=== PATIENT | male | born 1935 | race Caucasian/White ===

== ENCOUNTER 2019-05-24 12:25 | Outpatient (CLI) | payer MEDICARE, SELFPAY ==
--- NOTE | ~2019-05-24 | US_ITS ---
EXAMINATION: US soft tissue head and neck DATE: 05/24/2019 13:15 INDICATION: Left neck abscess. TECHNIQUE: Multiple grayscale and Doppler ultrasound images of the left neck were obtained. COMPARISON: None FINDINGS: In the left submandibular region, there is a 2.0 x 1.5 cm mixed solid and cystic mass. IMPRESSION: 1. 2.0 x 1.5 cm mixed solid and cystic mass in the left submandibular region. The differential diagno sis includes abscess, suppurative lymph node, and necrotic javed metastatic disease. Consider neck CT with contrast. Reviewed, dictated and finalized at location A. IMPRESSION: 1. 2.0 x 1.5 cm mixed solid and cystic mass in the left submandibular region. T he differential diagnosis includes abscess, suppurative lymph node, and necroti c javed metastatic disease. Consider neck CT with contrast.
== END 2019-05-24 12:26 | disposition home or self-care (01) ==
PROVIDERS: PCP Internal Medicine; Visit Provider Internal Medicine
DX: R59.1 Generalized enlarged lymph nodes (principal); R22.1 Localized swelling, mass and lump, neck
CPT/HCPCS: 76536

== ENCOUNTER 2019-05-26 13:53 | Outpatient (CLI) | payer MEDICARE, SELFPAY ==
--- NOTE | ~2019-05-26 | CT_ITS ---
EXAMINATION: CT soft tissue neck w con EXAM DATE: 05/26/2019 14:58 INDICATION: Generalized enlarged lymph nodes, with pain. Marked. Abnormal ultrasound. TECHNIQUE: Spiral CT of the neck was performed following intravenous injection of 75 mL Omnipaque 350 . Axial, coronal and sagittal images were reviewed. The dose-length product (DLP) for this examinat ion was 541.87 mGy-cm. The exposure was tailored according to patient size (auto mA exposure control ), and iterative reconstruction (ASIR) was used as additional dose reduction technique. Correlation i s made to ultrasound dated 05/24/2019. FINDINGS: In the superficial lobe of the left parotid gland there is mixed density mass lesion likely the complex cystic mass identified on ultrasound. Given location, appearance, most likely primary pa rotid neoplasm, and suspicious for malignant histology. Differential diagnosis does include intraparo tid cystic lymph node from infection or metastatic disease. The thyroid gland is unremarkable. No in ternal jugular chain or supraclavicular lymph nodes. The superior mediastinum is unremarkable. The airway is unremarkable. Parapharyngeal and pre-glottic fat planes are preserved. The opacified v asculature is patent. The orbits are unremarkable. Small right maxillary sinus mucous retention c yst. Lung apices are clear. Moderate cervical spondylosis. There are no osteoblastic or osteolytic lesions identified. 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 Intraparotid lymph node less lik yu. Recommend ENT consult for histologic correlation, resection. Reviewed, dictated and finalized at location A. 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 Intraparot id lymph node less likely. Recommend ENT consult for histologic correlation, re section.
[2019-05-26 14:48] LABS: Estimated Glomerular Filt Rate > 60
== END 2019-05-26 13:54 | disposition home or self-care (01) ==
PROVIDERS: PCP Internal Medicine; Visit Provider Internal Medicine
DX: R59.0 Localized enlarged lymph nodes (principal); R22.1 Localized swelling, mass and lump, neck
CPT/HCPCS: 36415; 70491; Q9967

== ENCOUNTER 2019-06-05 13:07 | Outpatient (CLI) | payer MEDICARE, SELFPAY ==
--- NOTE | ~2019-06-05 | US_ITS ---
EXAMINATION: US FNA w image guidance DATE: 06/05/2019 14:26 INDICATION: Left parotid mass. TECHNIQUE: The procedure and its benefits, risks, and benefits were discussed with the patient. Risks specifical ly discussed included bleeding. The patient verbalized understanding of the risks and agreed to proce ed. The left face was prepped and draped in the usual sterile manner. 1% lidocaine was used for loca l anesthesia. 5 passes were made with a 25G needle into the lesion. Appropriate needle location was documented with continuous sonographic guidance. There were no immediate complications. The patient understood to call the ordering physician for results after a week and a half and verbalized that un derstanding. FINDINGS: Grayscale ultrasound images demonstrate needles advanced into a 1.7 x 1.6 cm mixed solid and cystic m ass in superficial left parotid gland for biopsy. IMPRESSION: 1. Ultrasound-guided fine needle aspiration of a left parotid mass. Reviewed, dictated and finalized at location A.
== END 2019-06-05 13:08 | disposition home or self-care (01) ==
LOC: ANHIMG 13:10
PROVIDERS: PCP Internal Medicine; Visit Provider Otolaryngology
DX: D37.030 Neoplasm of uncertain behavior of the parotid salivary glands (principal)
CPT/HCPCS: 10005; 88108; 88173; 88305

== ENCOUNTER 2019-07-18 14:35 | Outpatient (CLI) | payer MEDICARE, SELFPAY ==
--- NOTE | 2019-07-18 14:37 | ECG_ITS ---
Measurements Intervals [place] Rate: 56 P: 96 [place]: 287 QRS: -63 QRSD: 108 T: 65 QT: 430 QTc: 416 Interpretive Statements SINUS BRADYCARDIA WITH SINUS ARRHYTHMIA WITH FIRST DEGREE AV BLOCK INCOMPLETE RIGHT BUNDLE BRANCH BLOCK LEFT ANTERIOR FASCICULAR BLOCK BORDERLINE ST-T WAVE ABNORMALITY- LATERAL LEADS ABNORMAL ECG Electronically Signed On 07-18-2019 14:53:19 CDT by Ger Miller D.O.
[2019-07-18 15:13] LABS: Hemoglobin 15.5 g/dL (14.0-18.0)
== END 2019-07-18 14:36 | disposition home or self-care (01) ==
LOC: ANHSURGERY 14:37
PROVIDERS: Anesthesiology; PCP Internal Medicine; Visit Provider Otolaryngology
DX: R59.1 Generalized enlarged lymph nodes (principal); I45.10 Unspecified right bundle-branch block; I44.4 Left anterior fascicular block
CPT/HCPCS: 36415; 85014; 85018; 93005

== ENCOUNTER 2019-07-21 00:08 | Outpatient (CLI) | payer MEDICARE, SELFPAY ==
[2019-07-21 17:26] LABS: SARS-CoV-2 RNA PCR Negative
== END 2019-07-21 00:09 | disposition home or self-care (01) ==
LOC: ANHCOVIDDT 00:08
PROVIDERS: PCP Internal Medicine; Visit Provider Otolaryngology
DX: Z11.59 Encounter for screening for other viral diseases (principal)
CPT/HCPCS: 87635; C9803; U0003

== ENCOUNTER 2019-07-24 00:35 | Day surgery (SDC) | payer MEDICARE, SELFPAY ==
[2019-07-13 10:00] VITALS: BMI 25.1
[2019-07-24] VITALS (8 sets, daily range): BP systolic 128–167; BP diastolic 70–89; PULSE 58–75; RESP 8–20; TEMP 36.3–36.4; O2SAT 94–100
--- NOTE | 2019-07-24 07:19 | WPDHPUPDATE1 ---
History and Physical Update Update Date/Time: 07/24/19 07:19 LEFT superficial parotidectomy. History and Physical has been reviewed, including an updated exam of the patient. There are NO changes in the patient's condition. Risks, benefits, and alternatives have been discussed and questions answered. Patient agrees to proceed with procedure.
[2019-07-24] MEDS: LACTATED RINGERS 1,000 ML 30 ML IV CONT ×2 (07:40→09:46)
--- NOTE | 2019-07-24 08:00 | WPDANESEPPF ---
Anes - Initial Pre Proc Eval Procedure: Operation Date: 07/24/19 08:30 Proposed Procedures p Left Superficial Parotidectomy with Facial Nerve Monitor - Coleman Sweeney MD Date/Time: 07/24/19 08:00 Surgeon: Coleman Sweeney MD Pre Op Diagnosis: parotid neoplasm Patient Data Age: 83 Gender: M Height: 5 ft 11 in Weight: 83 kg Last Vital Signs Temp 97.5 F L 07/24/19 07:45 Pulse 58 L 07/24/19 07:45 Resp 16 07/24/19 07:45 BP 167/86 H 07/24/19 07:45 Pulse Ox 100 07/24/19 07:45 Allergies Allergy/AdvReac Type Severity Reaction Status Date / Time No Known Allergies Allergy Verified 07/24/19 07:12 Home Medications Medication Instructions Recorded Confirmed Type Lacto.acidophilus-Bif.animalis 1 cap PO DAILY 07/13/19 07/24/19 History [Daily Probiotic] biotin 5 mg PO DAILY 07/13/19 07/24/19 History coQ10 (ubiquinol) 100 mg PO BID 07/13/19 07/24/19 History glucosamine-chondroitin 1 cap PO DAILY 07/13/19 07/24/19 History multivitamin,wh-nhwo-czdrsdmh 1 tablet PO DAILY 07/13/19 07/24/19 History [Complete Multivitamin] omega 4-nos-gux-fish oil [Fish Oil] 1 cap PO DAILY 07/13/19 07/24/19 History Patient hx anesthesia problems: none Family hx anesthesia problems: none PMFSH Past Medical History Medical History (Updated 07/24/19 @ 08:00 by Max Johnson MD) Primary parotid gland malignancy Family History Family History (Updated 04/27/16 @ 10:27 by DOCTOR UNKNOWN) Sibling Family history of malignant melanoma Family history of malignant neoplasm of brain Father Hypertension Other Cerebrovascular accident Family history of coronary artery disease Family history of emphysema Family history of malignant neoplasm Social History Social History Smoking status: Never smoker Alcohol intake: current Anes - Eval Final PreProcedure Day of Procedure 07/24/19 08:00 Patient weight: normal Heart: regular rate and rhythm Lungs: clear to auscultation Airway: Mallampati scale class II Neurological: alert and oriented Last oral intake: >/= 8 hours ASA classification: II Emergent: no Anesthetic plan: proceed Anesthesia type and monitoring: general ETT and standard monitoring Informed Consent: The patient's anesthetic plan and its attendant risks and benefits were discussed with the patient/family/POA. Questions were solicited and answers provided to the satisfaction of the patient/family/POA.
--- NOTE | 2019-07-24 08:00 | PM.PROC ---
Procedure Note - Detailed Date of procedure: 07/24/19 Pre-op diagnosis: parotid neoplasm Post-op diagnosis: same Procedure performed: Left superficial parotidectomy with facial nerve monitoring Description of procedure: After informed consent was obtained the time out procedure was performed the patient was brought to the operating room placed on the operating table in the supine position. The patient was placed under general endotracheal anesthesia. A modified José Miguel incision was marked out in the patient's left preauricular crease. 1% lidocaine with one 100,000 epinephrine was injected into the marked incision. The patient was prepped and draped in the usual fashion. A #15 scalpel was used to make the skin incision. This was carried down to the level of the greater auricular nerve.this nerve was dissected superiorly up to the patient's earlobe. The preauricular incision was not made due to the inferior extent of the tumor. The underlying tumor was easily palpated. The greater auricular nerve was preserved.? The anterior border of the SCM was identified and peeled off of the tumor. The tumor was approximately 2.5cm at the tail of parotid. It was dissected free from the SCM and circumferentially freed from surrounding tissue using harmonic scalpel and careful dissection. The parotid mass was then removed from the remaining tail of parotid. No stimulation of the facial nerve was encountered. The main trunk of the facial nerve was identified in its normal anatomic position and preserved. The nerve intraoperative monitor was utilized throughout the case and the facial nerve was confirmed using the prass probe.? Once the specimen was passed off the field the wound bed was carefully irrigated using warm saline solution, there is no evidence of any significant bleeding. The upper and lower divisions of the facial nerve were then stimulated at 1 milliamp, and found to have greater than 1000 microvolts of stimulation. The wound was then closed in layers over a? Dariusz drain using 3-0 Vicryl 4-0 Monocryl, and dermabond. No drain was indicated. The patient was then awakened from general anesthesia, extubated and transferred to recovery in stable condition. Anesthesia: GETA Surgeon: Coleman Sweeney MD Estimated blood loss (mL): 10 Drains: No Packing: No Pathology: yes (left tail of parotid) Complications: No immediate complications Condition: stable Disposition: PACU Findings: Left tail of parotid mass. Facial nerve intact.
--- NOTE | 2019-07-24 08:05 | SUR.PREOP ---
Up to bathroom.
[2019-07-24] MEDS: ceFAZolin SODIUM 1 GM VIAL 2 GM IV PUSH (08:52)
[2019-07-24] MEDS: LIDO 1%/EPINEPHRINE 1:100,000 20 ML VIAL 10 ML INFILTRATE (08:54)
== END 2019-07-24 11:09 | disposition home or self-care (01) ==
PROVIDERS: PCP Internal Medicine; Visit Provider Otolaryngology
PROC: (CPT 42410; principal; 2019-07-24 08:30)
DX: D11.0 Benign neoplasm of parotid gland (principal); K11.23 Chronic sialoadenitis
CPT/HCPCS: 42410; 88305; 88307; A9270; J0131; J0330; J0690; J1100; J2405; J2704; J3010; J7120

== ENCOUNTER → 2020-09-16 11:36 | Outpatient (CLI) | payer MEDICARE, SELFPAY ==
--- NOTE | ~2020-09-16 | XR_ITS ---
XR knee RT 3V 09/16/2020 12:52 Indication: Knee pain Procedure: 3 views right knee Comparison: 08/22/2018 Findings: Mild osteoarthritis of the right knee. No fracture or traumatic malalignment. No joint effu matt. Osteopenia. 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 Reviewed, dictated and finalized at location A. 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
--- NOTE | ~2020-09-16 | XR_ITS ---
XR knee LT 3V 09/16/2020 12:52 Indication: Left knee pain Procedure: 3 views left knee Comparison: 3 views left knee Findings: Mild osteoarthritis of the left knee. No fracture or traumatic malalignment. No significant joint effusion. Impression: 1: Mild osteoarthritis of the left knee. Reviewed, dictated and finalized at location A. Impression: 1: Mild osteoarthritis of the left knee.
== END ==
PROVIDERS: PCP Internal Medicine; Visit Provider Internal Medicine
DX: M25.569 Pain in unspecified knee (principal); M17.0 Bilateral primary osteoarthritis of knee
CPT/HCPCS: 73562

== ENCOUNTER 2021-12-02 10:29 | Outpatient (CLI) | payer MEDICARE, SELFPAY ==
--- NOTE | ~2021-12-02 | XR_ITS ---
EXAMINATION: XR abdomen/kub 1V INDICATION: Diarrhea TECHNIQUE: Supine views of the abdomen were obtained on 2 radiographs. COMPARISON: None FINDINGS: A large volume of stool is present in the descending colon and rectum. No free intraperiton eal gas is identified. There are distended loops of bowel in the midabdomen. There is mild atelectasi s of the lung bases. IMPRESSION: 1. Large volume of stool in the descending colon and rectum with dilated bowel in the midabdomen, pos sibly due to constipation. Reviewed, dictated and finalized at location A. IMPRESSION: 1. Large volume of stool in the descending colon and rectum with dilated bowel in the midabdomen, possibly due to constipation.
== END 2021-12-02 10:30 | disposition home or self-care (01) ==
PROVIDERS: PCP Internal Medicine; Visit Provider Nurse Practitioner Family
DX: R19.7 Diarrhea, unspecified (principal)
CPT/HCPCS: 74018

== ENCOUNTER 2022-02-27 00:58 | Day surgery (SDC) | payer MEDICARE, SELFPAY ==
[2022-02-13 10:42] VITALS: BMI 24.5
[2022-02-27 08:59] VITALS: BP 146/91; PULSE 67; RESP 20; TEMP 36.3; O2SAT 99
[2022-02-27] MEDS: LACTATED RINGERS 1,000 ML 150 ML IV CONT (09:13)
--- NOTE | 2022-02-27 09:17 | PM.HPGS ---
History of Present Illness History of Present Illness Consent: Risks, benefits, and alternatives have been discussed and questions answered. Patient agrees to proceed with procedure. Chief complaint: diarrhea Narrative: Primo Olivia is a 86 year old male Presents for colonoscopy. Patient reports over last several months has had alteration in his bowel habits. Previously had a tendency to constipation began to have loose to watery stools but only on a once a day basis. Patient had been taking magnesium that could have contributed to diarrhea and loose stools. Imaging studies were performed which revealed excessive stool for this reason he was briefly given a trial of Linzess. Patient continues to feel bowel habits are not regular and for this reason colonoscopy is advised. Previous colonoscopy 2016 was felt to be unremarkable. Patient presents today for colonoscopy to assess change in bowel habits. Review of Systems Review of Systems: Review of systems noncontributory. [facility] Past Medical History Medical History Actinic keratosis of scalp Amaurosis fugax, both eyes Arthritis of both knees Change in bowel habits Chronic pain of both shoulders Chronic pain of right knee Chronic shoulder pain Colitis Cough Encounter for routine adult health examination without abnormal findings Hearing loss Hernia Herpes zoster without complication Instability of right knee joint Internal derangement of left knee Other chronic pain Pain in right shoulder Pain of right hip joint Primary osteoarthritis of both shoulders Primary osteoarthritis of right knee Primary parotid gland malignancy (~2018) Removal of Tumor Tunnel vision Unspecified hearing loss Surgical History Surgical History History of hernia surgery (~2005) History of vasectomy (~1974) Family History Family History Sibling Family history of malignant melanoma Family history of malignant neoplasm of brain Father Hypertension Other Cerebrovascular accident Family history of coronary artery disease Family history of emphysema Family history of malignant neoplasm Social History Social History Smoking status: Never smoker Alcohol intake: current Drinks per week: 9 Alcohol use details: social, wine Substance use: never Substance use type: does not use Lack of Transportation: No Lack of Food: Never True Current Housing: I Have Housing Concerned About Future Housing: No Difficulty Paying Gas/Electric Bills: No Difficulty Paying for Meds: No Currently Unemployed: No Education: Master's Degree or Higher Difficulty w/ Childcare or Family Care: No Spiritual care concerns: No Meds Home Medications and Allergies Home Medications Medication Instructions Recorded Confirmed Type Lactobacillus 1 cap PO DAILY 07/13/19 02/13/22 History acidophilus-Bifidobac.animalis 2.5 billion cell capsule (Daily Probiotic) coQ10 (ubiquinol) 100 mg capsule 100 mg PO BID 07/13/19 02/13/22 History multivitamin,lg-tknu-tmfizwwd 1 tablet PO DAILY 07/13/19 02/13/22 History (Complete Multivitamin tablet) omega 3-lxb-mis-fish oil 1,000 mg 1 cap PO DAILY 07/13/19 02/13/22 History (120 mg-180 mg) capsule (Fish Oil) cholecalciferol (vitamin D3) 50 50 mcg PO DAILY 03/31/21 02/13/22 History mcg (2,000 unit) capsule zinc 50 mg tablet 50 mg PO DAILY 03/31/21 02/13/22 History turmeric (bulk) 95 % powder 1 ea miscellaneous DAILY 01/08/22 02/13/22 History (Curcumin) sodium,potassium,mag sulfates 17.5 See Rx Instructions PO .COMPLEX 02/09/22 02/13/22 Rx gram-3.13 gram-1.6 gram oral soln #354 mL (Suprep Bowel Prep Kit) Total Restore 1 tab-cap PO DAILY 02/13/22 02/13/22 History astaxanthin 4 mg capsule 4 mg PO DAILY
--- NOTE | 2022-02-27 09:32 | WPDANESEPPF ---
Anes - Initial Pre Proc Eval Procedure: Operation Date: 02/27/22 11:00 Proposed Procedures p Colonoscopy - Mitchell Hussein MD Date/Time: 02/27/22 09:32 Surgeon: Mitchell Hussein MD Pre Op Diagnosis: diarrhea Patient Data Age: 86 Gender: M Height: 1.8 m Weight: 81.2 kg Last Vital Signs Temp 97.3 F L 02/27/22 08:59 Pulse 67 02/27/22 08:59 Resp 20 02/27/22 08:59 BP 146/91 H 02/27/22 08:59 Pulse Ox 99 02/27/22 08:59 O2 Del Method Room Air 02/27/22 08:59 Allergies Allergy/AdvReac Type Severity Reaction Status Date / Time No Known Allergies Allergy Verified 02/27/22 08:58 Home Medications Medication Instructions Recorded Confirmed Type Lactobacillus 1 cap PO DAILY 07/13/19 02/13/22 History acidophilus-Bifidobac.animalis 2.5 billion cell capsule (Daily Probiotic) coQ10 (ubiquinol) 100 mg capsule 100 mg PO BID 07/13/19 02/13/22 History multivitamin,fm-qyug-ntjecemr 1 tablet PO DAILY 07/13/19 02/13/22 History (Complete Multivitamin tablet) omega 2-jel-qyu-fish oil 1,000 mg 1 cap PO DAILY 07/13/19 02/13/22 History (120 mg-180 mg) capsule (Fish Oil) cholecalciferol (vitamin D3) 50 50 mcg PO DAILY 03/31/21 02/13/22 History mcg (2,000 unit) capsule zinc 50 mg tablet 50 mg PO DAILY 03/31/21 02/13/22 History turmeric (bulk) 95 % powder 1 ea miscellaneous DAILY 01/08/22 02/13/22 History (Curcumin) sodium,potassium,mag sulfates 17.5 See Rx Instructions PO .COMPLEX 02/09/22 02/13/22 Rx gram-3.13 gram-1.6 gram oral soln #354 mL (Suprep Bowel Prep Kit) Total Restore 1 tab-cap PO DAILY 02/13/22 02/13/22 History astaxanthin 4 mg capsule 4 mg PO DAILY 02/13/22 02/13/22 History Patient hx anesthesia problems: none Family hx anesthesia problems: none Results Review: All pre-operative results and documents have been reviewed as part of the pre-operative evaluation. [facility] Past Medical History Medical History Actinic keratosis of scalp Amaurosis fugax, both eyes Arthritis of both knees Change in bowel habits Chronic pain of both shoulders Chronic pain of right knee Chronic shoulder pain Colitis Cough Encounter for routine adult health examination without abnormal findings Hearing loss Hernia Herpes zoster without complication Instability of right knee joint Internal derangement of left knee Other chronic pain Pain in right shoulder Pain of right hip joint Primary osteoarthritis of both shoulders Primary osteoarthritis of right knee Primary parotid gland malignancy (~2018) Removal of Tumor Tunnel vision Unspecified hearing loss Surgical History Surgical History History of hernia surgery (~2005) History of vasectomy (~1974) Family History Family History Sibling Family history of malignant melanoma Family history of malignant neoplasm of brain Father Hypertension Other Cerebrovascular accident Family history of coronary artery disease Family history of emphysema Family history of malignant neoplasm Social History Social History Smoking status: Never smoker Alcohol intake: current Drinks per week: 9 Alcohol use details: social, wine Substance use: never Substance use type: does not use Lack of Transportation: No Lack of Food: Never True Current Housing: I Have Housing Concerned About Future Housing: No Difficulty Paying Gas/Electric Bills: No Difficulty Paying for Meds: No Currently Unemployed: No Education: Master's Degree or Higher Difficulty w/ Childcare or Family Care: No Spiritual care concerns: No Anes - Eval Final PreProcedure Day of Procedure 02/27/22 09:32 Patient weight: normal Heart: regular rate and rhythm Lungs: clear to auscultation Airway: Mallampati scale class II Neurolo
[2022-02-27 10:02] VITALS: BP 109/67; PULSE 54; RESP 20; O2SAT 98
[2022-02-27 10:12] VITALS: BP 126/79; PULSE 56; RESP 20; O2SAT 100
[2022-02-27 10:22] VITALS: BP 145/85; PULSE 84; RESP 20; O2SAT 99
== END 2022-02-27 10:36 | disposition home or self-care (01) ==
PROVIDERS: PCP Nurse Practitioner; Visit Provider Internal Medicine Gastroenterology
PROC: 0DJD8ZZ Inspection of Lower Intestinal Tract, Via Natural or Artificial Opening Endoscopic (ICD-10-PCS; CPT 45378; principal; 2022-02-27 11:00)
DX: R19.4 Change in bowel habit (principal); K64.8 Other hemorrhoids
CPT/HCPCS: 45378; J2704; J7120

== ENCOUNTER 2022-05-13 08:44 | Outpatient (CLI) | payer MEDICARE, SELFPAY ==
--- NOTE | 2022-05-13 08:53 | EST_ITS ---
Patient Info Name: Primo Olivia Age: 86 years : 1935 Gender: Male Ht: 71 in Wt: 175 lbs BSA: 2.00 m2 HR: 67 bpm BP: 156 / 98 mmHg Exam Date: 05/13/2022 10:44 AM Exam Location: [facility] Stress Patient Status: Outpatient Admit Date: 05/13/2022 Staff Ordering Physician: Camden Kennedy APRN Attending Provider: Camden Kennedy APRN Exam Type: CA stress test treadmill Study Info A treadmill exercise stress test was performed. Summary 1. 1. Inconclusive Ramone exercise stress test for ischemic ST changes by ECG criteria as patient only achieved 70% MPHR for age group. 2. 2. Poor functional capacity, achieving 4.7 METs of workload. 3. 3. Chronotropic incompetence is demonstrated. 4. 4. Baseline hypertension. 5. 5. No imaging with stress testing. 6. 6. Patient informed of the above results. Protocol: [facility] Stress ECG Details Stage: REST Duration (min): 1 min : 57 sec Speed (mph): 0.0 Grade (%): 0 HR (bpm): 68 SBP (mmHg): 156 DBP (mmHg): 98 METS: --- Stage: REST Duration (min): 12 min : 28 sec Speed (mph): 0.0 Grade (%): 0 HR (bpm): 70 SBP (mmHg): 156 DBP (mmHg): 98 METS: --- Stage: STAGE 1 Duration (min): 1 min : 0 sec Speed (mph): 1.7 Grade (%): 10 HR (bpm): 84 SBP (mmHg): 156 DBP (mmHg): 98 METS: --- Stage: STAGE 1 Duration (min): 2 min : 0 sec Speed (mph): 1.7 Grade (%): 10 HR (bpm): 85 SBP (mmHg): 156 DBP (mmHg): 98 METS: --- Stage: STAGE 1 Duration (min): 2 min : 59 sec Speed (mph): 1.7 Grade (%): 10 HR (bpm): 87 SBP (mmHg): 156 DBP (mmHg): 98 METS: --- Stage: RECOVERY Duration (min): 1 min : 0 sec Speed (mph): 0.0 Grade (%): 0 HR (bpm): 92 SBP (mmHg): 156 DBP (mmHg): 98 METS: --- Stage: RECOVERY Duration (min): 2 min : 0 sec Speed (mph): 0.0 Grade (%): 0 HR (bpm): 81 SBP (mmHg): 145 DBP (mmHg): 113 METS: --- Stage: RECOVERY Duration (min): 3 min : 0 sec Speed (mph): 0.0 Grade (%): 0 HR (bpm): 77 SBP (mmHg): 159 DBP (mmHg): 107 METS: --- Stage: RECOVERY Duration (min): 4 min : 0 sec Speed (mph): 0.0 Grade (%): 0 HR (bpm): 72 SBP (mmHg): 159 DBP (mmHg): 107 METS: --- Stage: RECOVERY Duration (min): 5 min : 0 sec Speed (mph): 0.0 Grade (%): 0 HR (bpm): 77 SBP (mmHg): 159 DBP (mmHg): 107 METS: --- Stage: RECOVERY Duration (min): 6 min : 0 sec Speed (mph): 0.0 Grade (%): 0 HR (bpm): 76 SBP (mmHg): 159 DBP (mmHg): 107 METS: --- Stage: RECOVERY Duration (min): 7 min : 0 sec Speed (mph): 0.0 Grade (%): 0 HR (bpm): 81 SBP (mmHg): 196 DBP (mmHg): 115 METS: --- Stage: RECOVERY Duration (min): 8 min : 0 sec Speed (mph): 0.0 Grade (%): 0 HR (bpm): 82 SBP (m
--- NOTE | 2022-05-13 08:53 | ECHO_ITS ---
Patient Info Name: Primo Olivia Age: 86 years : 1935 Gender: Male Ht: 71 in Wt: 175 lbs BSA: 2.00 m2 HR: 73 bpm BP: 142 / 91 mmHg Technical Quality: Good Exam Date: 05/13/2022 9:20 AM Exam Location: [facility] Patient Status: Outpatient Admit Date: 05/13/2022 Staff Ordering Physician: Camden Kennedy APRN Repair Technician: Fazal Mejía RDCS, RT Attending Provider: Camden Kennedy APRN Referring Physician: Brent BEGUM; Exam Type: CA echo doppler color flow Study Info Indications R53.82 - Chronic fatigue, unspecified Complete two-dimensional, color flow and Doppler transthoracic echocardiogram is performed. Strain analysis performed. Summary 1. Complete two-dimensional, color flow and Doppler transthoracic echocardiogram is performed. 2. Left ventricular chamber dimension is mildly enlarged. 3. There is mildly increased left ventricular wall thickness. 4. Left ventricular systolic function is mildly globally reduced, estimated at 45-50%. 5. The left ventricular diastolic function is grade I diastolic dysfunction. 6. E/e' 8 is minimally elevated. 7. Global longitudinal strain is abnormal at -13.3%. 8. Left atrial chamber dimension is mildly enlarged. 9. Right atrial chamber dimension is moderately enlarged. 10. There is mild aortic valve sclerosis. 11. There is mild to moderate mitral valve regurgitation. 12. There is mild to moderate tricuspid valve regurgitation. 13. Mild pulmonary hypertension, estimated pulmonary arterial systolic pressure is 44 mmHg. 14. There is mild pulmonic regurgitation. 15. Dilated inferior vena cava with >50% collapse upon inspiration consistent with elevated right atrial pressure, 10 mmHg. Left Ventricle E/e' 8 is minimally elevated. Global longitudinal strain is abnormal at -13.3%. Left ventricular systolic function is mildly globally reduced, estimated at 45-50%. Left ventricular chamber dimension is mildly enlarged. There is mildly increased left ventricular wall thickness. The left ventricular diastolic function is grade I diastolic dysfunction. Right Ventricle Right ventricular systolic function is normal based on normal TAPSE 1.8 cm. Right ventricular chamber dimension is not well visualized. Left Atria Left atrial chamber dimension is mildly enlarged. Right Atria Right atrial chamber dimension is moderately enlarged. Aortic Valve The aortic valve is trileaflet. There is mild aortic valve sclerosis. There is no aortic valve stenosis. There is no aortic valve regurgitation. Pulmonic Valve There is mild pulmonic regurgitation. Mitral Valve There is no mitral valve stenosis. There is mild to moderate mitral valve regurgitation. Tricuspid Valve There is mild to moderate tricuspid valve regurgitation. Mild pulmonary hypertension, estimated pulmonary arterial systolic pressure is 44 mmHg. Pericardium/Pleural There is no pericardial effusion. Inferior Vena Cava Dilated inferior vena cava with >50% collapse upon inspiration consistent with elevated right atrial pressure, 10 mmHg. Aorta The aortic root size at the sinus of Valsalva is normal. Left Ventricular Outflow Tract Name Value Normal LVOT 2D LVOT Diameter
== END 2022-05-13 08:45 | disposition home or self-care (01) ==
PROVIDERS: PCP Nurse Practitioner; Visit Provider Nurse Practitioner
DX: R06.02 Shortness of breath (principal); I08.3 Combined rheumatic disorders of mitral, aortic and tricuspid valves
CPT/HCPCS: 93017; 93306

== ENCOUNTER 2022-09-01 07:47 | Outpatient (CLI) | payer MEDICARE, SELFPAY ==
--- NOTE | 2022-09-01 | EST_ITS ---
Patient Info Name: Primo Olivia Age: 87 years : 1935 Gender: Male Ht: 72 in Wt: 175 lbs BSA: 2.01 m2 HR: 57 bpm BP: 152 / 98 mmHg Heart Rhythm: Sinus Rhythm Exam Date: 09/01/2022 8:45 AM Exam Location: [facility] Stress Patient Status: Outpatient Admit Date: 09/01/2022 Staff Ordering Physician: Camden Kennedy APRN Attending Provider: Camden Kennedy APRN Exercise Technologist: Lurdes Peace CT Nurse: setephania hansen Exam Type: CA stress angeli w NM Study Info Indications R06.02 - Shortness of breath A regadenoson stress test was performed. Summary 1. No abnormal ST/T wave changes diagnostic of ischemia with Lexiscan. 2. Occasional PACs. 3. Please correlate with nuclear medicine images, reported separately. Protocol: Lexiscan Stress ECG Details Stage: REST Duration (min): 7 min : 16 sec HR (bpm): 53 SBP (mmHg): 159 DBP (mmHg): 80 Stage: REST Duration (min): 37 min : 34 sec HR (bpm): 45 SBP (mmHg): 152 DBP (mmHg): 98 Stage: REST Duration (min): 46 min : 42 sec HR (bpm): 50 SBP (mmHg): 152 DBP (mmHg): 98 Stage: STAGE 1 Duration (min): 0 min : 59 sec HR (bpm): 56 SBP (mmHg): 157 DBP (mmHg): 98 Stage: RECOVERY Duration (min): 1 min : 0 sec HR (bpm): 67 SBP (mmHg): 157 DBP (mmHg): 98 Stage: RECOVERY Duration (min): 2 min : 0 sec HR (bpm): 64 SBP (mmHg): 157 DBP (mmHg): 98 Stage: RECOVERY Duration (min): 3 min : 0 sec HR (bpm): 63 SBP (mmHg): 143 DBP (mmHg): 92 Stage: RECOVERY Duration (min): 3 min : 11 sec HR (bpm): 63 SBP (mmHg): 143 DBP (mmHg): 92 Rest HR: 50 bpm Peak HR: 67 bpm Rest Sys BP: 152 mmHg Peak Sys BP: 157 mmHg Max Pred HR: 134 bpm % Max Pred HR: 50 % Target HR: 114 bpm Max RPP: 10,519 bpm*mmHg Total Time: 1 min : 0 sec Rest Madison BP: 98 mmHg Peak [place] BP: 98 mmHg Total Dose: 0.4 mg Resting ECG Sinus rhythm. Incomplete right bundle branch block. Stress ECG Sinus rhythm. No abnormal ST/T wave changes diagnostic of ischemia with Lexiscan. Arrhythmias Occasional PACs. Report Signatures
--- NOTE | ~2022-09-01 | NM_ITS ---
EXAMINATION: NM angeli stress w perfusion DATE: 09/01/2022 10:13 INDICATION: Shortness of breath TECHNIQUE: Rest images were obtained following intravenous administration of 10.5 mCi Tc99m tetrofosm in (Myoview). The patient was infused intravenously with Lexiscan (Regadenoson). Then, 31.1 mCi Tc99m tetrofosmin (Myoview) was administered intravenously, and stress images were obtained. Data was lisy nstructed into short axis and horizontal and vertical long axis SPECT images. Gated SPECT images were also obtained. COMPARISON: None. FINDINGS: There is no definite reversible or fixed perfusion abnormality to suggest ischemia or infar ction. There is normal left ventricular chamber size, wall motion and ejection fraction. Left ventr icular ejection fraction measures 50%. IMPRESSION: 1. Normal myocardial perfusion at rest and during stress. 2. Left ventricular ejection fraction measuring 50%. Reviewed, dictated and finalized at location A.
== END 2022-09-01 07:48 | disposition home or self-care (01) ==
PROVIDERS: PCP Nurse Practitioner; Visit Provider Nurse Practitioner
DX: R06.02 Shortness of breath (principal)
CPT/HCPCS: 78452; 93017; A9502; J2785

== ENCOUNTER 2023-07-22 10:03 | Outpatient (CLI) | payer MEDICARE, SELFPAY ==
--- NOTE | ~2023-07-22 | XR_ITS ---
EXAMINATION: XR lumbar spine 2-3V DATE: 07/22/2023 10:18 INDICATION: Low back pain, unspecified. TECHNIQUE: 3 views of lumbar spine including standing views were obtained. COMPARISON: CT abdomen and pelvis 10/02/2015 FINDINGS: There is 5 degrees dextrocurvature of thoracolumbar spine. There is 3 mm retrolisthesis of L3 on L4 and L4 on L5. There is mild chronic anterior wedging of T12 and L1 vertebral bodies. There i s mildly decreased disc height at T12-L1 and L1-L2, moderately decreased disc height at L2-L3 and L3- L4, and severely decreased disc height at L4-L5 and L5-S1. There is multilevel facet joint osteoarthr itis, severe in lower lumbar spine. IMPRESSION: 1. Severe lumbar spondylosis. Reviewed, dictated and finalized at location A.
== END 2023-07-22 10:04 ==
LOC: MICIMG 10:05
PROVIDERS: PCP Nurse Practitioner; Visit Provider Nurse Practitioner
DX: M54.50 Low back pain, unspecified (principal); M43.06 Spondylolysis, lumbar region
CPT/HCPCS: 72100

== ENCOUNTER 2023-10-14 09:47 | Outpatient (CLI) | payer MEDICARE, SELFPAY | END 2023-10-14 09:48 | disposition home or self-care (01) | LOC: ANHAUDIO 09:48 | PROVIDERS: PCP Nurse Practitioner; Visit Provider Otolaryngology | DX: H90.3 Sensorineural hearing loss, bilateral (principal) | CPT/HCPCS: 92557; 92567 ==

== ENCOUNTER 2023-10-21 11:16 | Outpatient (CLI) | payer MEDICARE, SELFPAY ==
--- NOTE | ~2023-10-21 | XR_ITS ---
XR knee LT min 4V 10/21/2023 11:40 Indication: Left knee pain Procedure: 7 views left knee Comparison: 09/16/2020 Findings: There is moderate osteoarthritis of the left knee. There is chondrocalcinosis. No significa nt joint effusion. No foreign bodies. There is a loose body medial to the knee joint. Impression: 1: Moderate osteoarthritis of the left knee. Reviewed, dictated and finalized at location B. Impression: 1: Moderate osteoarthritis of the left knee.
--- NOTE | ~2023-10-21 | XR_ITS ---
Right Knee Technique: AP, lateral, and sunrise views were obtained. Clinical History: Osteoarthritis Findings: No fracture or dislocation is seen. Osseous alignment is anatomic. There is minimal patella r spurring. Soft tissues are unremarkable. No joint effusion is seen. Impression: Minimal patellar spurring. Reviewed, dictated and finalized at location . Impression: Minimal patellar spurring.
== END 2023-10-21 11:17 | disposition home or self-care (01) ==
LOC: ANHIMG 11:19
PROVIDERS: PCP Nurse Practitioner; Visit Provider Orthopaedic Surgery
DX: M25.761 Osteophyte, right knee (principal); M17.12 Unilateral primary osteoarthritis, left knee
CPT/HCPCS: 73564

== ENCOUNTER 2024-03-07 10:19 | Outpatient (CLI) | payer MEDICARE, SELFPAY ==
--- NOTE | ~2024-03-07 | XR_ITS ---
XR hip BI 2V w AP pelvis Ordering provider: ANNE Aranda History: . M25.551 - Pain in right hip . Comparison: None. FINDINGS: BONES: No acute fracture or dislocation. HIP JOINT SPACES: Bilateral mild to moderate osteoarthritic changes. SACROILIAC JOINT SPACES/LUMBAR SPINE: The sacroiliac joint spaces shows a right sacroiliitis.. Mild d egenerative changes of the visualized lower lumbar spine. PUBIC SYMPHYSIS: Normal. SOFT TISSUES: Normal. IMPRESSION: No acute osseous abnormality of the bilateral hips and pelvis. Bilateral hip osteoarthritic changes. Reviewed, dictated and finalized at location A. D SUPPORT ENGINEER
== END 2024-03-07 10:20 | disposition home or self-care (01) ==
PROVIDERS: PCP Nurse Practitioner; Visit Provider Physician Assistant Surgical
DX: M16.0 Bilateral primary osteoarthritis of hip (principal)
CPT/HCPCS: 73521

== ENCOUNTER 2024-07-25 11:00 | Outpatient (CLI) | payer MEDICARE, SELFPAY ==
--- NOTE | ~2024-07-25 | XR_ITS ---
Clinical Indication: Cough PA and lateral views of the chest: Comparison: 12/30/2017 Findings: The lungs are clear, without evidence of focal consolidation or pleural effusion. Cardiome diastinal silhouette is within normal limits. Bones and soft tissues are unremarkable. Impression: Normal chest. Reviewed, dictated and finalized at [facility]. Impression: Normal chest.
== END 2024-07-25 11:01 | disposition home or self-care (01) ==
LOC: MICIMG 11:01
PROVIDERS: PCP Nurse Practitioner; Visit Provider Nurse Practitioner
DX: R05.3 Chronic cough (principal)
CPT/HCPCS: 71046

== ENCOUNTER 2024-11-15 13:12 | Emergency (ER) | payer MEDICARE, SELFPAY ==
--- NOTE | 2024-11-15 13:19 | ED.GENADULT ---
HPI - General Adult General Chief complaint: Ear Stated complaint: EARS CLOGGED Source: patient Mode of arrival: ambulatory Limitations: no limitations History of Present Illness HPI narrative: Pt is an 89 y/o male presenting with c/o clogged L. ear. Reports decreased hearing to the L. ear. States his resort host was able to remove impacted wax from his R. ear but was unable to remove from left. No additional complaints. Related Data Home Medications ?Medication ?Instructions ?Recorded ?Confirmed ?Last Taken ?Type coQ10 (ubiquinol) 100 mg capsule 100 mg PO BID 07/13/19 11/10/24 07/21/19 History multivitamin,hh-mbmo-yhqtgzhd 1 tablet PO DAILY 07/13/19 11/10/24 07/21/19 History (Complete Multivitamin tablet) omega 0-qjv-sgw-fish oil 1,000 mg 1 cap PO DAILY 07/13/19 11/10/24 07/21/19 History (120 mg-180 mg) capsule (Fish Oil) cholecalciferol (vitamin D3) 50 50 mcg PO DAILY 03/31/21 11/10/24 Unknown History mcg (2,000 unit) capsule zinc 50 mg tablet 50 mg PO DAILY 03/31/21 11/10/24 Unknown History turmeric (bulk) 95 % powder 1 ea miscellaneous DAILY 01/08/22 11/10/24 Unknown History (Curcumin) astaxanthin 4 mg capsule 4 mg PO DAILY 02/13/22 11/10/24 Unknown History Allergies Allergy/AdvReac Type Severity Reaction Status Date / Time No Known Allergies Allergy Verified 11/15/24 13:31 Review of Systems Review of Systems: CONSTITUTIONAL: Denies body aches, fever, chills, or sweats. EYES: Denies visual changes, redness, or discharge. ENT: Reports clogged left ear, Denies rhinorrhea, congestion, sore throat, or otalgia. CARDIOVASCULAR: Denies chest pain, palpitations, or edema. RESPIRATORY: Denies cough or dyspnea. GASTROINTESTINAL: Denies abdominal pain, nausea, vomiting, or diarrhea. GENITOURINARY: Denies dysuria or hematuria. SKIN: Denies rash, itching, or wounds. MUSCULOSKELETAL: Denies back pain, joint pain, or myalgia. NEUROLOGIC: Denies headache, numbness, tingling, or weakness. PSYCH: Denies depression or anxiety. All systems reviewed & are unremarkable except as noted in HPI and below PMFSH Past Medical History Medical History BMI 25.0-25.9,adult Change in bowel habits Tunnel vision Unspecified hearing loss Encounter for routine adult health examination without abnormal findings Chronic shoulder pain Primary osteoarthritis of right knee Primary osteoarthritis of both shoulders Pain of right hip joint Pain in right shoulder Other chronic pain Instability of right knee joint Herpes zoster without complication Cough Colitis Chronic pain of right knee Chronic pain of both shoulders Arthritis of both knees Amaurosis fugax, both eyes Actinic keratosis of scalp Internal derangement of left knee Hearing loss Hernia 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 Other Cerebrovascular accident Family history of coronary artery disease Family history of emphysema Family history of malignant neoplasm Social History Social History Smoking status: Never smoker Second hand tobacco smoke exposure: Yes Alcohol intake: current Drinks per week: 8 Alcohol use details: social, wine Substance use: never Substance use type: does not use Do You Feel Safe in your Home?: Yes Lack of Transportation: No Lack of Food: Never True Current Housing: I Have Housing Concerned About Future Housing: No Difficulty Paying Gas/Electric Bills: No Difficulty Paying for Meds: No Currently Unemployed: No Education: Master's Degree or Higher Difficulty w/ Childcare or Family Care: No Living arrangements: with family Occupation/Education: retired 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 HEAD: Normocephalic, atraumatic. EYES: EOMI. No redness or drainage. Conjunctivae normal. ENT: Mucous membranes pink and moist. blue tympanostomy tubes present right TM. NECK: Normal AROM. Supple. CHEST: No respiratory distress. C HEART: Regular rate EXTREMITIES: Normal range of motion. SKIN: Warm, dry, no rash. Capillary refill normal. NEURO: No focal deficits. Alert and oriented x3. Gait steady. PSYCH: Normal affect. No signs of depression or anxiety. HENMT: Ears: external ears normal, TM normal on the right, TM normal on the left, EAC's normal ( cerumen impaction noted, left; EAC normal after removal) and hearing grossly impaired bilaterally Course Course Level of Care: Express Care Visit Vital Signs Vital signs: Vital Signs Temperature 97.4 F L 11/15/24 13:22 Pulse Rate 65 11/15/24 13:22 Respiratory Rate 16 11/15/24 13:22 Blood Pressure 167/91 H 11/15/24 13:22 Pulse Oximetry 98 11/15/24 13:22 Temperature 97.4 F L 11/15/24 13:22 Pulse Rate 65 11/15/24 13:22 Respiratory Rate 16 11/15/24 13:22 Blood Pressure 167/91 H 11/15/24 13:22 Pulse Oximetry 98 11/15/24 13:22 Procedures Ear Wax Removal Left Ear: Ear Wax Removal Date: 11/15/24 Ear Wax Removal Time: 13:22 Cerumenolytic Used: other ( Peroxide, warm saline) Results: Re-examined: cerumen removed completely TM Examination: TM(s) intact, normal appearance Ear Canal Exam: atraumatic Patient Tolerated Procedure: well and no complications Complications: no problems Technique: ear canal irrigated Medical Decision Making MDM Narrative Medical decision making narrative: Discussed elevated blood pressure readings with patient and advised daily BP monitoring and f/u with PCP if persisting. Vital Signs Vital Signs: Vital Signs Temperature 97.4 F L 11/15/24 13:22 Pulse Rate 65 11/15/24 13:22 Respiratory Rate 16 11/15/24 13:22 Blood Pressure 167/91 H 11/15/24 13:22 Pulse Oximetry 98 11/15/24 13:22 Temperature 97.4 F L 11/15/24 13:22 Pulse Rate 65 11/15/24 13:22 Respiratory Rate 16 11/15/24 13:22 Blood Pressure 167/91 H 11/15/24 13:22 Pulse Oximetry 98 11/15/24 13:22 Discharge Plan Discharge Clinical Impression: Impacted cerumen of left ear, Elevated blood pressure reading in office without diagnosis of hypertension Patient Disposition: Home Condition: Improved Additional Instructions: Go straight to ER should your symptoms become worse or should any new symptoms develop Patient Language: Australian Prescriptions: No Action zinc 50 mg tablet 50 mg PO DAILY cholecalciferol (vitamin D3) 50 mcg (2,000 unit) capsule 50 mcg PO DAILY Curcumin 95 % powder 1 ea miscellaneous DAILY Complete Multivitamin Tablet 1 tablet PO DAILY omega 1-hmo-mjv-fish oil [Fish Oil] 1,000 mg (120 mg-180 mg) Capsule 1 cap PO DAILY coQ10 (ubiquinol) 100 mg Capsule 100 mg PO BID astaxanthin 4 mg Capsule 4 mg PO DAILY Follow-up/Referrals: Camden Kennedy APRN [Primary Care Provider, Internal Medicine] - 11/16/24 Time of Disposition: 13:22
[2024-11-15 13:22] VITALS: BP 167/91; PULSE 65; RESP 16; TEMP 36.3; O2SAT 98
== END 2024-11-15 13:41 | disposition home or self-care (01) ==
PROVIDERS: Emergency Provider Registered Nurse; PCP Nurse Practitioner
DX: H61.22 Impacted cerumen, left ear (principal); R03.0 Elevated blood-pressure reading, without diagnosis of hypertension; M17.0 Bilateral primary osteoarthritis of knee; M19.012 Primary osteoarthritis, left shoulder; M19.011 Primary osteoarthritis, right shoulder
CPT/HCPCS: 69209; 99212; G0463

== ENCOUNTER 2024-12-15 13:55 | Outpatient (CLI) | payer MEDICARE, SELFPAY ==
--- NOTE | 2024-12-15 | ECHO_ITS ---
Patient Info Name: Primo Olivia Age: 89 years : 1935 Gender: Male Ht: 71 in Wt: 165 lbs BSA: 1.94 m2 HR: 64 bpm BP: 143 / 99 mmHg Technical Quality: Good Exam Date: 12/15/2024 2:15 PM Patient Status: O Admit Date: 12/15/2024 Exam Type: CA echo doppler color flow Complete two-dimensional, color flow and Doppler transthoracic echocardiogram is performed. Strain analysis performed. End Touching Machine Operator: René Figueroa III Summary 1. Complete two-dimensional, color flow and Doppler transthoracic echocardiogram is performed. 2. Strain analysis performed. 3. Left ventricular chamber dimension is normal. 4. Left ventricular systolic function is normal, estimated at 55-60. 5. There is mild concentric increased left ventricular wall thickness. 6. The left ventricular diastolic function is grade I diastolic dysfunction. 7. E/e' 8 is minimally elevated. 8. Global longitudinal strain is abnormal at -15.7%. 9. Right ventricular chamber dimension is mildly enlarged. 10. Right ventricular systolic function is mildly reduced. and with abnormal TAPSE 1.3 cm. 11. Left atrial chamber dimension is mildly enlarged. 12. Right atrial chamber dimension is moderately enlarged. 13. There is mild aortic valve sclerosis. 14. There is trace aortic valve regurgitation. 15. There is mild to moderate mitral valve regurgitation. 16. There is mild to moderate tricuspid valve regurgitation. 17. No pulmonary hypertension, estimated pulmonary arterial systolic pressure is 33 mmHg. 18. There is mild pulmonic regurgitation. Left Ventricle E/e' 8 is minimally elevated. Left ventricular chamber dimension is normal. Left ventricular systolic function is normal, estimated at 55-60. There is mild concentric increased left ventricular wall thickness. The left ventricular diastolic function is grade I diastolic dysfunction. Global longitudinal strain is abnormal at -15.7%. Right Ventricle Right ventricular chamber dimension is mildly enlarged. Right ventricular systolic function is mildly reduced. and with abnormal TAPSE 1.3 cm. Left Atria Left atrial chamber dimension is mildly enlarged. Right Atria Right atrial chamber dimension is moderately enlarged. Aortic Valve The aortic valve is trileaflet. There is mild aortic valve sclerosis. There is no aortic valve stenosis. There is trace aortic valve regurgitation. Pulmonic Valve There is mild pulmonic regurgitation. Mitral Valve There is no mitral valve stenosis. There is mild to moderate mitral valve regurgitation. Tricuspid Valve There is mild to moderate tricuspid valve regurgitation. No pulmonary hypertension, estimated pulmonary arterial systolic pressure is 33 mmHg. Pericardium/Pleural There is no pericardial effusion. Inferior Vena Cava Normal inferior vena cava with >50% collapse upon inspiration consistent with normal right atrial pressure, 5 mmHg. Aorta The aortic root size at the sinus of Valsalva is normal. Left Ventricular Outflow Tract Name Value Normal LVOT 2D LVOT Diameter 2.3 cm LVOT Doppler LVOT Peak Velocity 100 cm/s LVOT Peak Gradient 4 mmHg LVOT Mean Gradient 2 mmHg LVOT VTI 22 cm LVOT VTI/AV VTI Ratio 1.0 LVOT Stroke Volume 95 ml LVOT CO 5.8 l/min LVOT CI 3.0 l/min/m2 Pulmonic Valve Name Value Normal PV Doppler PV Peak Velocity 77 cm/s PV Peak Gradient 2 mmHg PV Mean Gradient 1 mmHg PV Regurgitation Doppler MT Peak End Diastolic Velocity 180 cm/s Mitral Valve Name Value Normal MV Doppler MV Peak Gradient 2 mmHg MV Mean Gradient 1 mmHg MV Area (Cont Eq VTI) 4.2 cm2 MV Regurgitation Doppler MR Peak Gradient 113 mmHg MV Diastolic Function MV E Peak Velocity 61 cm/s MV A Peak Velocity 78 cm/s MV E/A 0.8 MV Decel Time (PW) 201 ms MV Annular TDI MV E/e' (Septal) 9.4 MV E/e' (Lateral) 7.9 MV E/e' (Average) 8.6 Tricuspid Valve Name Value Normal TV Regurgitation Doppler TR Peak Velocity 264 cm/s TR Peak Gradient 28 mmHg Estimated PAP/RSVP RA Pressure 5 mmHg <=5 PA Systolic Pressure 33 mmHg <36 RV Systolic Pressure 33 mmHg <36 TV Annular TDI TV Lateral Ronna s' Velocity 11.6 cm/s >=9.5 Aortic Valve Name Value Normal AV Doppler AV Peak Velocity 111 cm/s AV Peak Gradient 5 mmHg AV Mean Gradient 3 mmHg AV VTI 22 cm AV Area (Cont Eq VTI) 4.2 cm2 >=3.0 AV Area (Cont Eq Shreyas) 3.9 cm2 AV DI (Shreyas) 0.90 AV Regurgitation 2D LVOT Area 4.3 cm2 Ventricles Name Value Normal LV Dimensions 2D/MM IVS Diastolic Thickness (2D) 1.3 cm 0.6-1.0 LVID Diastole (2D) 4.5 cm 4.2-5.8 LVIW Diastolic Thickness (2D) 1.1 cm 0.6-1.0 LVID Systole (2D) 3.6 cm 2.5-4.0 LVOT Diameter 2.3 cm LV Mass (2D Cubed) 194.54 g 88.00-224.00 LV Mass Index (2D Cubed) 100 g/m2 49-115 Relative Wall Thickness (2D) 0.49 <=0.42 LV Fractional Shortening/Ejection Fraction 2D/MM LV Fractional Shortening (2D) 21 % 25-43 LV EF (2D Teichholz) 43 % LV Diastolic Volume (4C MOD) 85 ml LV EF (4C MOD) 53 % LV Diastolic Volume (2C MOD) 71 ml LV EF (2C MOD) 54 % LV Diastolic Volume (BP MOD) 78 ml 62-150 LV Diastolic Volume Index (BP MOD) 40 ml/m2 34-74 LV Systolic Volume (BP MOD) 37 ml 21-61 LV Systolic Volume Index (BP MOD) 19 ml/m2 11-31 LV EF (BP MOD) 53 % 52-72 LV Diastolic Length (4C) 8.0 cm LV Systolic Length (4C) 7.4 cm LV Stroke Volume (4C MOD) 45 ml Atria Name Value Normal LA Dimensions LA Volume (4C A-L) 56 ml LA Volume (BP A-L) 57 ml RA Dimensions RA Systolic Major [place] Length (4C) 6.5 cm 2.1-2.7 RA Area (4C) 25.5 cm2 <=18.0 EchoPAC Name Value Normal AutoEF LVCO_BiP_Q (Qbrq6SVL) 2.8 l/min LVEF_BiP_Q (Nsfs2ALT) 60 % LVSV_BiP_Q (Wgsn4XGB) 48 ml LVVED_BiP_Q (Mbde4BDY) 80 ml LVVES_BiP_Q (Xqws5QXF) 32 ml HR_4Ch_Q (Tues7ENH) 63 bpm LVCO_4Ch_Q (Kxsg6JSD) 2.9 l/min LVEF_4Ch_Q (Jktl7ZRE) 55 % LVLd_4Ch_Q (Rpgc7CLT) 7.4 cm LVLs_4Ch_Q (Mmhl1VUS) 6.3 cm LVSV_4Ch_Q (Pbrs0NIT) 46 ml LVVED_4Ch_Q (Xobp8QVI) 84 ml LVVES_4Ch_Q (Ejpp1PJN) 38 ml HR_2Ch_Q (Xpcg0SQD) 59 bpm LVCO_2Ch_Q (Fxbo2GZP) 2.8 l/min LVEF_2Ch_Q (Cqvr5QUN) 64 % LVLd_2Ch_Q (Baiv5ZOC) 8.0 cm LVLs_2Ch_Q (Gaqf5WCE) 7.0 cm LVSV_2Ch_Q (Ewzb9RLG) 48 ml LVVED_2Ch_Q (Jxyn0SRC) 75 ml LVVES_2Ch_Q (Jijs4JJM) 27 ml GABRIELLA LV Apical Anterior Longitudinal Strain (GABRIELLA) -22.0 % LV Apical Anteroseptal Longitudinal Strain (GABRIELLA) -30.4 % LV Apical Inferior Longitudinal Strain (GABRIELLA) -20.1 % LV Apical Lateral Longitudinal Strain (GABRIELLA) -25.3 % LV Apical Posterior Longitudinal Strain (GABRIELLA) -21.7 % LV Apical Septal Longitudinal Strain (GABRIELLA) -23.8 % AV Closure (GABRIELLA) 395 ms LV Basal Anterior Longitudinal Strain (GABRIELLA) -6.6 % LV Basal Anteroseptal Longitudinal Strain (GABRIELLA) -2.8 % LV Basal Inferior Longitudinal Strain (GABRIELLA) -17.0 % LV Basal Anterolateral Longitudinal Strain (GABRIELLA) -15.8 % LV Basal Inferolateral Longitudinal Strain (GABRIELLA) -12.6 % LV Basal Inferoseptal Longitudinal Strain (GABRIELLA) -4.6 % LV Global Longitudinal Strain (2C GABRIELLA) -15.1 % LV Global Longitudinal Strain (4C GABRIELLA) -15.6 % LV Global Longitudinal Strain (APLAX GABRIELLA) -16.5 % LV Global Longitudinal Strain (GABRIELLA) -15.7 % LV Mid Anterior Longitudinal Strain (GABRIELLA) -17.9 % LV Mid Anteroseptal Longitudinal Strain (GABRIELLA) -13.9 % LV Mid Inferior Longitudinal Strain (GABRIELLA) -11.8 % LV Mid Anterolateral Longitudinal Strain (GABRIELLA) -14.5 % LV Mid Inferolateral Longitudinal Strain (GABRIELLA) -14.2 % LV Mid Inferoseptal Longitudinal Strain (GABRIELLA) -10.8 % Report Signatures
--- OUTSIDE RECORDS SUMMARY | 2024-12-15 14:00 | XMS_ITS | Clinical Summary ---
Author Organization [facility] Address [address] [place] [address] Care Team Providers Care Cardroom Hand Name Role Phone Unavailable Primary Care Provider Unavailabl e Source Comments [facility],non-owned Affiliates and Associated Physician Practices is amultiple site organization consisting of ambulatory clinics and hospital sitesin [place], [place], [place] and [place]. This disclosure is being madepursuant to the Care Everywhere program and may not contain all information available regarding this patient. Last updated 17.[facility] [employer] Social History Tobacco Use Types Packs/Day Years Used Date Smoking Tobacco: Never Assessed Sex and Gender Information Value Date Recorded Sex Assigned at Not on file Legal Sex Male 10:13 AM CDT Gender Identity Not on file Sexual Orientation Not on file Plan of Treatment Health Maintenance Due Date Last Done Comments DTAP/TDAP/TD VACCINES (1 - Tdap) 08/03/1955 PNEUMOCOCCAL VACCINE 50+ (1 of 1 - PCV) 1986 ZOSTER VACCINE (1 of 2) 1986 Respiratory Syncytial Virus (RSV) Vaccine Pt: or over 60 yrs (1 - 1-dose 75+ series) 08/03/2011 DEPRESSION SCREENING 02/23/2024 COVID-19 VACCINE (1 - 2023-2 5 season) 2024 INFLUENZA VACCINE (#1) 2024 HEPATITIS B VACCINE Aged Out No longe r eligible based on patient's age to complete this topic HIB VACCINE Aged Out No longer eligi ble based on patient's age to complete this topic HPV VACCINE Aged Out No longer eligi ble based on patient's age to complete this topic MENINGOCOCCAL (Group B) VACC INE SHARED DECISION-MAKING Aged Out No longer eligibl e based on patient's age to complete this topic MENINGOCOCCAL GROUPS A/C/Y/W VACCINE Aged Out No longer eligible b ased on patient's age to complete this topic Insurance AETNA AETNA
--- OUTSIDE RECORDS SUMMARY | 2024-12-15 14:00 | XMS_ITS | Clinical Summary ---
Author Organization [facility] [address] Address [address] [place] [address] Care Team Providers Care Wirer Passenger Car Name Role Phone Camden Kennedy NP Primary Care Provider Allergies No known active allergies Medications coenzyme Q10 10 mg capsule Take 1 capsule (10 mg total) by mouth daily Active -tjpt -Lmfolate-algal 27 mg iron-1.13 mg-581.92 mg capsule Take by mouth Active omega 4-mjb-zse-fish oil 350 mg-235 mg- 90 mg-597 mg capsule,delayed release(DR/EC) Take by mouth A ctive cholecalciferol , vitamin D3, (D3-1999 ORAL) Take by mouth A ctive zinc gluconate 50 mg tablet Take 1 tablet (50 mg total) by mouth daily Active turmeric, bulk, 95 % powder Active astaxanthin 4 mg capsule Take by mouth Activ e aspirin (Adult Low Dose Aspirin) 81 mg enteric coated tablet Take 1 tablet (81 mg total) by mouth daily 3 Active Additional Information Patient taking differently:81 mg oral Daily,Patient says he is inconsistent with taking this medication currently., Reported on 12/04/2024 magnesium oxide 400 mg magnesium capsule Take by mouth Active melatonin tablet Take by mouth Active coQ10, ubiquinol, 100 mg capsule Take 100 mg by mouth 0 Active Active Problems Problem Noted Date Diagnosed Date Elevated blood pressure reading 03/02/2024 Bradycardia 06/10/2023 H/O cardiomyopathy 06/10/2023 Statin intolerance 06/10/2023 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 06/10/2023 Chronotropic incompetence 09/10/2022 SOB (shortness of breath) 09/10/2022 Abnormal ECG 09/10/2022 Myocardiopathy 09/10/2022 Abnormal stress test 09/10/2022 Encounters Date Type Department Care Team Description 12/04/2024 2:45 PM CDT Office Visit [facility] [address] [address] Spike Richter MD Cardiac arrhythmia, unspecified cardiac arrhythmia type (Primary Dx) 11/21/2024 3:45 PM CDT Office Visit [facility] [address] [address] Allan Broussard NP Impacted cerumen of left ear (Primary Dx); Abrasion of left ear canal, initial encounter from Last 3 Months Surgical History Surgery Date Site/Laterality Comments HERNIA REPAIR 02/22/2005 - 02/21/2006 VASECTOMY 02/22/1974 - 02/21/1975 Medical History Medical History Date Comments Shortness of breath Actinic keratosis of scalp Arthritis Chronic shoulder pain Colitis Hearing loss Herpes zoster without complications Malignant tumor of parotid gland (HCC) Tunnel vision Family History Medical History Relation Name Comments COPD Father Hypertension Father Osteoporosis Mother Relation Name Status Comments Father Mother Social History Tobacco Use Types Packs/Day Years Used Date Smoking Tobacco: Never Tobacco Cessation:Counseling Given: Not Answered Sex and Gender Information Value Date Recorded Sex Assigned at Not on file 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 Gender Identity Male 09/14/2022 3:50 PM CDT Sexual Orientation Straight 09/14/2022 3: 50 PM CDT Obstetrics History Last Filed Vital Signs Vital Sign Reading Time Taken Comments Blood Pressure 118/68 12/04/2024 2:38 PM CDT Pulse 69 12/04/2024 2:38 PM CDT Temperature 36.8 C (98.2 F) 11/21/2024 3:43 PM CDT Respiratory Rate 20 11/21/2024 3:43 PM CDT Oxygen Saturation 98% 11/21/2024 3:43 PM CDT Inhaled Oxygen Concentration - - Weight 77.7 kg (171 lb 6.4 oz) 12/04/2024 2:38 P M CDT Height 180.3 cm (5' 11) 12/04/2024 2:38 PM CDT Body Mass Index 23.91 12/04/2024 2:38 PM CDT Plan of Treatment Health Maintenance Due Date Last Done Comments Depression Screening 1936 Fall Risk Assessment 1936 DTaP/Tdap/Td Vaccine (1 - Tdap) 08/03/1947 Hepatitis B Screening 1954 Pneumococcal vaccine 65+ (1 of 1 - PCV) 1986 Zoster Vaccine (1 of 2) 1986 Well Visit 65+ 2001 Covid-19 Vaccine ( season) 2024 02/10/2021, 05/09/2020, 04/18/2020 Influenza Vaccine (#1) 2024 Procedures Procedure Name Priority Date/Time Associated Diagnosis Comments ECG 12-LEAD Routine 12/04/2024 2:40 PM CDT Cardiac arrhythmia, unspecified cardiac arrhythmia type CA REMOVAL IMPACTED CERUMEN INSTRUMENTATION UNILAT Routine 11/21/2024 3:45 PM CDT Impacted cerumen of left ear from Last 3 Months Results * ECG 12 lead (12/04/2024 2:40 PM CDT) us Spike Richter MD ECG ORDERABLES Final Re sult * CA REMOVAL IMPACTED CERUMEN INSTRUMENTATION UNILAT (11/21/2024 3:45 PM CDT) Narrative Allan Broussard NP - 11/21/2024 3:45 PM CDT Allan Broussard NP 11/21/2024 4:03 PM Ear Cerumen Removal Performed by: Allan Broussard NP Authorized by: Allan Broussard NP Consent Given by: Patient Timeout: prior to procedure the correct patient, procedure, and site was verified Verbal consent obtained: Yes Risks, alternatives, and patient questions discussed: Yes Preparation: Patient was prepped using a clean technique Location: L ear L ear cerumen impacted?: Yes L ear method of removal: Instrumentation and irrigation L ear instrumentation: Curette L ear magnification: Otoscope Inspection: TM intact Hearing quality: Normal Patient tolerance: Patient tolerated the procedure well with no immediate complications TM normal and intact. us Allan Broussard NP IN CLINIC/BEDSIDE ORDERABLES Fi nal Result from Last 3 Months Insurance MEDICARE AET MEDICARE AETNA MEDICARE Care Teams Wirer Passenger Car Relationship Specialty Start Date End Date Camden Kennedy NP [address] [facility] [address] [place] [id number] PCP - General Nurse Practitioner 05/29/22
== END 2024-12-15 13:56 | disposition home or self-care (01) ==
PROVIDERS: PCP Nurse Practitioner
DX: R93.1 Abnormal findings on diagnostic imaging of heart and coronary circulation (principal); I51.89 Other ill-defined heart diseases; I49.9 Cardiac arrhythmia, unspecified
CPT/HCPCS: 93306